=== PATIENT | male | born 1960 | race Caucasian/White ===

== ENCOUNTER 2021-07-05 03:02 | Emergency (ER) | payer BC ==
[~2021-07-05] VITALS: Ht 188 cm; Wt 95.5 kg
[2021-07-05 05:46] VITALS: BP 122/74; PULSE 79; TEMP 101
[2021-07-05] MEDS ORDERED: ZOFRAN ODT4 MG PO (06:00)
[2021-07-17] MEDS ORDERED: RT ADVAIR HFA 2312 G IH (10:53)
[2021-07-17] MEDS ORDERED: PROAIR HFA0.09 MG/AC IH (10:53)
[2021-07-17] MEDS ORDERED: PREDNISONE20 MG PO (10:55)
== END 2021-07-05 05:46 | disposition home or self-care (01) ==
LOC: COL.ER 03:02
DX: U07.1 COVID-19 (principal); Z73.0 Burn-out
CPT/HCPCS: J7030

== ENCOUNTER → 2021-08-08 | Outpatient (CLI) | payer BC ==
[~2021-08-08] MED LIST: PREDNISONE20 MG PO; PROAIR HFA0.09 MG/AC IH; RT ADVAIR HFA 2312 G IH; ZOFRAN ODT4 MG PO
== END ==
LOC: COL.RAD 13:03
DX: J18.9 Pneumonia, unspecified organism (principal); Z86.16 Personal history of COVID-19